=== PATIENT | female | born 1955 | race Caucasian/White ===

== ENCOUNTER 2023-06-20 20:01 | Emergency (ER) | payer MEDICARE, OTHER ==
[2023-06-20 20:20] LABS: Basophils % (A) 1 %; Eosinophils # (A) 0.1 k/uL (0-0.7); Eosinophils % (A) 2 %; HCT 41.9 % (34.0-46.0); HGB 14.1 gm/dL (11.4-16.0); Lymphocytes # (A) 2.4 k/uL (1.0-4.8); Lymphocytes % (A) 41 %; MCH 30.2 pg (25.0-35.0); MCHC 33.6 g/dL (31.0-37.0); MCV 89.9 fL (80.0-100.0); Mean Platelet Volume 7.1; Monocytes # (A) 0.5 k/uL (0-1.0); Monocytes % (A) 9 %; Neutrophils # (A) 2.6 k/uL (1.3-7.7); Neutrophils % (A) 44 %; Platelet Count 223 k/uL (150-450); RBC 4.66 m/uL (3.80-5.40); WBC 5.8 k/uL (3.8-10.6)
[2023-06-20 20:26] VITALS: RESP 19; TEMP 97.8
[2023-06-20 20:31] LABS: ALT 20 U/L (4-34); African American GFR (CKD) >90 (>60 ml/min/1.73 sqM); Anion Gap 9 mmol/L; Blood Urea Nitrogen 16 mg/dL (7-17); Calcium 8.8 mg/dL (8.4-10.2); Carbon Dioxide 24 mmol/L (22-30); Chloride 106 mmol/L (98-107); Glucose 152 mg/dL (74-99); Non-African American GFR(CKD) >90 (>60 ml/min/1.73 sqM); Sodium 139 mmol/L (137-145); Total Bilirubin 0.7 mg/dL (0.2-1.3)
[2023-06-20 20:39] LABS: AST 29 U/L (14-36); Albumin 4.2 g/dL (3.5-5.0); Alkaline Phosphatase 52 U/L (38-126); Potassium 5.2 mmol/L (3.5-5.1); Total Protein 6.7 g/dL (6.3-8.2)
[2023-06-20 20:51] LABS: INR 0.9 (<1.2); Partial Thromboplastin Time 23.1 sec (22.0-30.0); Prothrombin Time 10.3 sec (10.0-12.5)
--- NOTE | 2023-06-20 21:06 | XR ---
EXAMINATION: XR chest 1V portable DATE AND TIME: 06/20/2023 8:22 PM CLINICAL INDICATION: PHH; palpitations TECHNIQUE: Departmental protocol COMPARISON: None FINDINGS: The lungs are clear as seen. The pleural spaces are negative. The cardiac silhouette appears mildly enlarged. The skeletal structures and soft tissues are negative for acute findings. Dextroscoliosis noted. Surgical clips are seen over the right breast and axilla regions. IMPRESSION: No definite acute radiographic process.
--- NOTE | 2023-06-20 22:05 | ED ---
Arrhythmia/Palpitations HPI - General Chief Complaint: Arrhythmia/Palpitations Stated Complaint: increased heart rate Time Seen by Provider: 06/20/23 20:21 Source: patient, EMS Mode of arrival: EMS - History of Present Illness Initial Comments: 68-year-old female presented to the emergency department reporting rapid heart rate. Patient has a history of SVT. She checked her pulse ox and noted that her heart rate was in the 180s. EMS attempted vagal maneuvers on the patient and then provided her with adenosine. Patient does convert prior to ER arrival. She reports to complete resolution of her symptoms. No chest pain. No history of coronary disease. Denies history of A. fib. No shortness of breath. No other alleviating, precipitating or modifying factors - Related Data Allergies Allergy/AdvReac Type Severity Reaction Status Date / Time morphine AdvReac Hallucinati Verified 06/20/23 20:38 ons Review of Systems ROS Statement: Those systems with pertinent positive or pertinent negative responses have been documented in the HPI. ROS Other: All systems not noted in ROS Statement are negative. Past Medical History Additional Past Medical History / Comment(s): Right breast cancer History of Any Multi-Drug Resistant Organisms: None Reported Additional Past Surgical History / Comment(s): right breast removable, back surgery, tubal, galbadder Smoking Status: Former smoker Past Alcohol Use History: None Reported Past Drug Use History: None Reported General Exam General appearance: alert, in no apparent distress Head exam: Present: atraumatic, normocephalic, normal inspection Eye exam: Present: normal appearance, PERRL, EOMI. Absent: scleral icterus, conjunctival injection, periorbital swelling ENT exam: Present: normal exam, mucous membranes moist Neck exam: Present: normal inspection. Absent: tenderness, meningismus, lymp hadenopathy Respiratory exam: Present: normal lung sounds bilaterally. Absent: respiratory distress, wheezes, rales, rhonchi, stridor Cardiovascular Exam: Present: regular rate, normal rhythm, normal heart sounds. Absent: systolic murmur, diastolic murmur, rubs, gallop, clicks GI/Abdominal exam: Present: soft, normal bowel sounds. Absent: distended, tenderness, guarding, rebound, rigid Extremities exam: Present: normal inspection, full ROM, normal capillary refill. Absent: tenderness, pedal edema, joint swelling, calf tenderness Back exam: Present: normal inspection Neurological exam: Present: alert, oriented X3, CN II-XII intact Psychiatric exam: Present: normal affect, normal mood Skin exam: Present: warm, dry, intact, normal color. Absent: rash Course Vital Signs 06/20/23 06/20/23 20:03 21:49 Temperature 97.8 F Pulse Rate 111 H 96 Respiratory 19 19 Rate Blood Pressure 141/112 151/81 O2 Sat by Pulse 97 96 Oximetry Medical Decision Making - Medical Decision Making Was pt. sent in by a medical professional or institution (, PA, SEWING MACHINE OPERATOR SEMIAUTOMATIC, urgent care, hospital, or prison...) When possible be specific @ -No Did you speak to anyone other than the patient for history (EMS, parent, family, police, friend...)? What history was obtained from this source @ -EMS Did you review nursing and triage notes (agree or disagree)? Why? @ -I reviewed and agree with nursing and triage notes Were old charts reviewed (outside hosp., previous admission, EMS record, old EKG, old radiological studies, urgent care reports/EKG's, prison records)? Report findings @ -No old charts were reviewed Differential Diagnosis (chest pain, altered mental status, abdominal pain women, abdominal pain men, vaginal bleeding, weakness, fever, dyspnea, syncope, headache, dizziness, GI bleed, back pain, seizure, CVA, palpatations, mental health, musculoskeletal)? @ -Differential Palpitations Ventricular arrhythmias, atrial arrhythmias, myocardial infarction, anemia, thyrotoxicosis, electrolyte imbalance, hypokalemia, pulmonary embolism, pulmonary disease, drugs, alcohol, anxiety, stress.... This is not meant to be an all-inclusive list. EKG interpreted by me (3pts min.). @ -Yes and demonstrates sinus tachycardia with a rate of 110. AR interval 131. QRS 85. QTC 388. No acute ST segment elevations. Mild ST depression in lead 2 X-rays interpreted by me (1pt min.). @ -Yes and demonstrates no acute process CT interpreted by me (1pt min.). @ -None done U/S interpreted by me (1pt. min.). @ -None done What testing was considered but not performed or refused? (CT, X-rays, U/S, labs)? Why? @ -None What meds were considered but not given or refused? Why? @ -None Did you discuss the management of the patient with other professionals (professionals i.e. , PA, SEWING MACHINE OPERATOR SEMIAUTOMATIC, lab, RT, psych nurse, licensed master social worker, turbine subassembler, teacher, classification officer, wrapper caser)? Give summary @ -No Was smoking cessation discussed for >3mins.? @ -No Was critical care preformed (if so, how long)? @ -No Were there social determinants of health that impacted care today? How? (Homelessness, low income, unemployed, alcoholism, drug addiction, transportation, low edu. Level, literacy, decrease access to med. care, fci, rehab)? @ -No Was there de-escalation of care discussed even if they declined (Discuss DNR or withdrawal of care, Hospice)? DNR status @ -No What co-morbidities impacted this encounter? (DM, HTN, Smoking, COPD, CAD, Cancer, CVA, ARF, Chemo, Hep., AIDS, mental health diagnosis, sleep apnea, morbid obesity)? @ -SVT Was patient admitted / discharged? Hospital course, mention meds given and route, prescriptions, significant lab abnormalities, going to OR and other pertinent info. @ -Discharge. Upon arrival patient is placed into room 6. Thorough history and physical exam is performed. Patient has converted. Laboratory studies are within normal limits. Chest x-ray demonstrates no acute process. I did offer observation however patient like to go home at this time. Suspected that the patient was in SVT with a history of SVT. Patient will be discharged and instructed to follow up with cardiology for further management and treatment options. Return for any new or worsening symptoms. Patient agreeable discharged in stable condition Undiagnosed new problem with uncertain prognosis? @ -No Drug Therapy requiring intensive monitoring for toxicity (Heparin, Nitro, Insulin, Cardizem)? @ -No Were any procedures done? @ -No Diagnosis/symptom? @ -Acute palpitations, Acute SVT, history of SVT Acute, or Chronic, or Acute on Chronic? @ -Acute Uncomplicated (without systemic symptoms) or Complicated (systemic symptoms)? @ -complicated Side effects of treatment? @ -No Exacerbation, Progression, or Severe Exacerbation? @ -No Poses a threat to life or bodily function? How? (Chest pain, [place], AL, pneumonia, PE, COPD, DKA, ARF, appy, cholecystitis, CVA, Diverticulitis, Homicidal, Suicidal, threat to staff... and all critical care pts) @ -No - Lab Data Result diagrams: 06/20/23 20:09 06/20/23 20:09 Lab Results 06/20/23 06/20/23 06/20/23 Range/Units 20:09 20:09 20:09 WBC 5.8 (3.8-10.6) k/uL RBC 4.66 (3.80-5.40) m/uL Hgb 14.1 (11.4-16.0) gm/dL Hct 41.9 (34.0-46.0) % MCV 89.9 (80.0-100.0) fL MCH 30.2 (25.0-35.0) pg MCHC 33.6 (31.0-37.0) g/dL RDW 13.0 (11.5-15.5) % Plt Count 223 (150-450) k/uL MPV 7.1 Neutrophils % 44 % Lymphocytes % 41 % Monocytes % 9 % Eosinophils % 2 % Basophils % 1 % Neutrophils # 2.6 (1.3-7.7) k/uL Lymphocytes # 2.4 (1.0-4.8) k/uL Monocytes # 0.5 (0-1.0) k/uL Eosinophils # 0.1 (0-0.7) k/uL Basophils # 0.0 (0-0.2) k/uL PT 10.3 (10.0-12.5) sec INR 0.9 (<1.2) APTT 23.1 (22.0-30.0) sec Sodium 139 (137-145) mmol/L Potassium 5.2 H (3.5-5.1) mmol/L Chloride 106 (98-107) mmol/L Carbon Dioxide 24 (22-30) mmol/L Anion Gap 9 mmol/L BUN 16 (7-17) mg/dL Creatinine 0.64 (0.52-1.04) mg/dL Est GFR (CKD-EPI)AfAm >90 (>60 ml/min/1.73 sqM) Est GFR (CKD-EPI)NonAf >90 (>60 ml/min/1.73 sqM) Glucose 152 H (74-99) mg/dL Calcium 8.8 (8.4-10.2) mg/dL Total Bilirubin 0.7 (0.2-1.3) mg/dL AST 29 (14-36) U/L ALT 20 (4-34) U/L Alkaline Phosphatase 52 (38-126) U/L Troponin I (0.000-0.034) ng/mL Total Protein 6.7 (6.3-8.2) g/dL Albumin 4.2 (3.5-5.0) g/dL TSH (0.465-4.680) mIU/L 06/20/23 06/20/23 Range/Units 20:09 20:39 WBC (3.8-10.6) k/uL RBC (3.80-5.40) m/uL Hgb (11.4-16.0) gm/dL Hct (34.0-46.0) % MCV (80.0-100.0) fL MCH (25.0-35.0) pg MCHC (31.0-37.0) g/dL RDW (11.5-15.5) % Plt Count (150-450) k/uL MPV Neutrophils % % Lymphocytes % % Monocytes % % Eosinophils % % Basophils % % Neutrophils # (1.3-7.7) k/uL Lymphocytes # (1.0-4.8) k/uL Monocytes # (0-1.0) k/uL Eosinophils # (0-0.7) k/uL Basophils # (0-0.2) k/uL PT (10.0-12.5) sec INR (<1.2) APTT (22.0-30.0) sec Sodium (137-145) mmol/L Potassium (3.5-5.1) mmol/L Chloride (98-107) mmol/L Carbon Dioxide (22-30) mmol/L Anion Gap mmol/L BUN (7-17) mg/dL Creatinine (0.52-1.04) mg/dL Est GFR (CKD-EPI)AfAm (>60 ml/min/1.73 sqM) Est GFR (CKD-EPI)NonAf (>60 ml/min/1.73 sqM) Glucose (74-99) mg/dL Calcium (8.4-10.2) mg/dL Total Bilirubin (0.2-1.3) mg/dL AST (14-36) U/L ALT (4-34) U/L Alkaline Phosphatase (38-126) U/L Troponin I <0.012 (0.000-0.034) ng/mL Total Protein (6.3-8.2) g/dL Albumin (3.5-5.0) g/dL TSH 2.100 (0.465-4.680) mIU/L Disposition Clinical Impression: Supraventricular tachycardia Disposition: HOME SELF-CARE Condition: Stable Instructions (If sedation given, give patient instructions): Supraventricular Tachycardia (ED) Additional Instructions: Please continue taking your medications as directed. Follow-up with your doctor and return for any new or worsening symptoms. i do recommend that you see a rubber extrusion machine operator as well Is patient prescribed a controlled substance at d/c from ED?: No Referrals: None,Stated [REFERRING] - 1-2 days [facility] [Provider Group] - 1-2 days Time of Disposition: 22:04
[2023-06-20 22:07] VITALS: BP 151/81; PULSE 96
== END 2023-06-20 22:43 | disposition home or self-care (01) ==
LOC: EC 20:01
DX: I47.10 Supraventricular tachycardia, unspecified (principal); Z87.891 Personal history of nicotine dependence; Z88.5 Allergy status to narcotic agent
CPT/HCPCS: 36415; 71045; 80053; 84443; 84484; 85025; 85610; 85730; 93005; 99285